=== PATIENT | female | born 1950 | race Caucasian/White ===

== ENCOUNTER 2016-11-03 15:15 | Emergency (ER) | payer OTHER ==
[2016-11-03 15:30] VITALS: RESP 16
--- NOTE | 2016-11-03 15:54 | EDPHY ---
H & P Stated Complaint: Right Leg Pain Time Seen by Provider: 11/03/16 15:34 HPI/ROS: Chief complaint: Right leg swelling and rash HPI: 66-year-old female with a history of chronic lymphedema of her right leg secondary to lymph node resection from endometrial cancer. Patient states that she has noticed that her right leg is swollen little bit more than normal today and she developed a rash in her right calf which is now in her right groin. It is not painful. It is not itchy. Has not had any fevers or chills. No recent changes in her activity. No abdominal pain. No numbness or weakness. Was sent in for evaluation for possible DVT. ROS: 10 point Review of Systems is negative except as noted in the HPI. Physical exam: Gen: Awake, Alert, No Distress HEENT: Nose: no rhinorrhea Eyes: PERRLA, EOMI Mouth: Moist mucosa Neck: Supple, no JVD Chest: nontender, lungs clear to auscultation Heart: S1, S2 normal, no murmur Abd: Soft, non-tender, no guarding Back: no CVA tenderness, no midline tenderness Ext: Right leg hair is 3+ edema in her calf and thigh which is nonpitting, there is a patchy papular rash on her right leg with some areas on her right inner thigh as well. These are not confluent. There are 3 or 4 PK in her right leg, otherwise this is blanching. Is mildly warm to touch. Skin: Per right leg exam Neuro: CN II-XII intact, Sensation grossly intact, Strength 5/5 in bilateral upper and lower] extremities - Personal History Current Tetanus/Diphtheria Vaccine: No Current Tetanus Diphtheria and Acellular Pertussis (TDAP): No Tetanus Vaccine Date: "WITHIN THE PAST 10 YEARS" - Medical/Surgical History Hx Asthma: No Hx Chronic Respiratory Disease: No Hx Diabetes: No Hx Cardiac Disease: No Hx Renal Disease: No Hx Cirrhosis: No Hx Alcoholism: No Hx HIV/AIDS: No Hx Splenectomy or Spleen Trauma: No Other PMH: SDH AFTER FALL 2007, LYMPHEDEMA RLE, EMDOMETRIAL CA, HYSTERECTOMY, DEPRESSION, migraine headaches - Social History Smoking Status: Never smoked Constitutional: Initial Vital Signs Temperature (C) 36.7 C 11/03/16 15:24 Heart Rate 119 H 11/03/16 15:24 Respiratory Rate 16 11/03/16 15:24 Blood Pressure 158/86 H 11/03/16 15:24 O2 Sat (%) 94 11/03/16 15:24 O2 Delivery Mode Room Air Allergies/Adverse Reactions: No Known Allergies Allergy (Verified 12/16/13 15:41) Home Medications: Medication Instructions Recorded Clonazepam 2 mg PO TID PRN 10/13/14 Doxepin HCl [Sinequan 50 MG (*)] 50 mg PO HS 10/13/14 Hydrocodon-Acetaminophen 5-325 05/31/15 Latanoprost 0.005% 05/31/15 Latanoprost 0.005% [Xalatan 0.005% 1 drops EACHEYE DAILY #1 opht.btl 05/31/15 (*)] Cephalexin [Keflex (*)] 500 mg PO Q6H #28 cap 11/03/16 Sulfamethox/Tmp 800/160 mg 1 tab PO BID #14 tab 11/03/16 [Bactrim Ds] Medical Decision Making - Diagnostics Imaging: Right leg duplex ultrasound: Negative for DVT per Dr. Pierson ED Course/Re-evaluation: 66-year-old patient presenting with right leg swelling and rash. Ultrasound is negative. I suspected to changes are likely secondary to: Chronic lymphedema but the could also be a lymphangitis or cellulitis component as well. She does warm to the touch and erythematous. Is not confluent however. Given its appearance will start her on oral antibiotics and instructions to follow up with primary care tomorrow for re-evaluation. She will return sooner if he continues to spread with any concerns including fevers chills, lightheadedness, or any other changes. Departure - Departure Disposition: Home, Routine, Self-Care Clinical Impression: Lymphangitis, Cellulitis Condition: Good Instructions: Lymphangitis (ED), Cellulitis (ED) Prescriptions: Cephalexin [Keflex (*)] 500 mg PO Q6H #28 cap Sulfamethox/Tmp 800/160 mg [Bactrim Ds] 1 tab PO BID #14 tab
[2016-11-03] MEDS ORDERED: SULFAMET/TMP DS PREPACK#2 BTL TAKEHOME ONE (17:12)
[2016-11-03] MEDS ORDERED: CEPHALEXIN 500MG PREPACK#4 BTL TAKEHOME ONE (17:12)
[2016-11-03 17:33] VITALS: BP 148/84; PULSE 102; TEMP 98.2; O2SAT 93
[2016-11-03] MEDS ORDERED: ONDANSETRON DISINTEGRATING 4 MG TAB ONE (17:34)
[2016-11-03] MEDS ORDERED: ONDANSETRON 4 MG/2 ML VIAL IVP ONE (17:35)
== END 2016-11-03 17:53 | disposition home or self-care (01) ==
DX: L03.115 Cellulitis of right lower limb (principal); Z85.42 Personal history of malignant neoplasm of other parts of uterus

== ENCOUNTER 2017-07-22 11:05 | Emergency (ER) | payer OTHER ==
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
[2017-07-22 11:19] VITALS: BP 147/89; PULSE 99; RESP 18; TEMP 99.1; O2SAT 93
--- NOTE | 2017-07-22 11:26 | CPEKG ---
Heart Rate: 96 RR Interval: 625 P-R Interval: 200 QRSD Interval: 82 QT Interval: 344 QTC Interval: 435 P [place]: 65 QRS [place]: 53 T Wave [place]: 44 EKG Severity - NORMAL ECG - EKG Impression: SINUS RHYTHM Electronically Signed By: Kunal Islas 23-Jul-2017 21:55:13
[2017-07-22 11:32] LABS: % IMMATURE GRANULYOCYTES 0.2 % (0.0-1.1); ABSOLUTE IMMATURE GRANULOCYTES 0.01 10^3/uL (0.00-0.10); ADD DIFF? NO; ADD MORPH? NO; ADD SCAN? NO; ATYPICAL LYMPHOCYTE FLAG 0 (0-99); FRAGMENT RBC FLAG 0 (0-99); HEMATOCRIT 42.3 % (38.0-47.0); HEMOGLOBIN 14.3 g/dL (12.6-16.3); LEFT SHIFT FLG 0 (0-99); LIPEMIA HEMOLYSIS FLAG 90 (0-99); MEAN CELL HEMOGLOBIN 29.1 pg (27.9-34.1); MEAN CELL HEMOGLOBIN CONCENTR. 33.8 g/dL (32.4-36.7); MEAN CELL VOLUME 86.2 fL (81.5-99.8); MEAN PLATELET VOLUME 8.9 fL (8.7-11.7); PLATELET CLUMPS FLAG 0 (0-99); PLATELET COUNT 310 10^3/uL (150-400); RED BLOOD CELL COUNT 4.91 10^6/uL (4.18-5.33); RED CELL DISTRIBUTION WIDTH 12.8 % (11.5-15.2)
[2017-07-22 11:51] LABS: ANION GAP 9 mEq/L (8-16); CALCIUM 9.6 mg/dL (8.5-10.4); CARBON DIOXIDE 28 mEq/l (22-31); CHLORIDE 103 mEq/L (97-110); CREATININE 0.9 mg/dL (0.6-1.0); GLOMERULAR FILTRATION RATE > 60; GLUCOSE 103 mg/dL (70-100); POTASSIUM 4.5 mEq/L (3.5-5.2); SODIUM 140 mEq/L (134-144)
== END 2017-07-22 13:36 | disposition home or self-care (01) ==
LOC: EDUNIT#
DX: S29.9XXA Unspecified injury of thorax, initial encounter (principal); V49.40XA Driver injured in collision with unspecified motor vehicles in traffic accident, initial encounter; Y92.410 Unspecified street and highway as the place of occurrence of the external cause; Y99.8 Other external cause status; Y93.89 Activity, other specified

== ENCOUNTER → 2017-07-29 | Outpatient (CLI) | payer OTHER | LOC: FIMAGING 15:15 | PROVIDERS: ATTEND Internal Medicine Hematology & Oncology | DX: Z12.31 Encounter for screening mammogram for malignant neoplasm of breast (principal) | CPT/HCPCS: G0202 ==

== ENCOUNTER 2017-09-20 13:38 | Day surgery (SDC) | payer OTHER ==
[2017-09-20] MEDS ORDERED: LIDOCAINE 1% 2 ML INJ ID PRN (13:58)
[2017-09-20] MEDS ORDERED: LR 1,000 ML IV ONE (13:58)
[2017-09-20 14:58] VITALS: PULSE 101
--- NOTE | 2017-09-20 15:45 | PDANEPAE ---
ANE History of Present Illness rectal bleeding ANE Past Medical History - Pulmonary History Hx Oxygen in Use at Home: No Hx Sleep Apnea: No - Endocrine History Hx Diabetes: No - Chronic Pain History Chronic Pain: Yes ANE Review of Systems Review of Systems: ANE Patient History - Allergies Allergies/Adverse Reactions: No Known Allergies Allergy (Verified 07/22/17 11:15) - Home Medications Home Medications: Clonazepam 2 mg PO TID PRN 10/13/14 [Last Taken 2 Days Ago ~09/18/17] Doxepin HCl [Sinequan 50 MG (*)] 50 mg PO HS 10/13/14 [Last Taken 1 Day Ago ~04/29] Alendronate Sodium [Fosamax 70 MG (*)] 09/20/17 [Last Taken 09/14/17] SUMAtriptan [Imitrex 50 MG (*)] 09/20/17 [Last Taken Unknown] - NPO status NPO Status: no food or drink >8 hours NPO Since - Liquids (Date): 09/20/17 NPO Since - Liquids (Time): 08:00 NPO Since - Solids (Date): 09/19/17 NPO Since - Solids (Time): 17:00 - Smoking Hx Smoking Status: Never smoked ANE Labs/Vital Signs - Vital Signs Blood Pressure: 131/67 Heart Rate: 101 Respiratory Rate: 18 O2 Sat (%): 93 Height: 154.94 cm Weight: 57.153 kg ANE Physical Exam - Airway Neck exam: FROM Mallampati Score: Class 2 Mouth exam: normal dental/mouth exam - Pulmonary Pulmonary: no respiratory distress - Cardiovascular Cardiovascular: regular rate and rhythym - ASA Status ASA Status: II ANE Anesthesia Plan Total IV Anesthesia: Yes
[2017-09-20] MEDS ORDERED: PROPOFOL/EMULSION 500 MG/50 ML BOTTLE IV ONE (15:49)
--- NOTE | 2017-09-20 15:56 | PDHPUP ---
History & Physical Update H&P update statement: This history and physical update is based on an assessment of the patient which was completed after admission or registration (within 24 hours), but prior to the surgery/procedure.
--- NOTE | 2017-09-20 16:47 | GIREPORT ---
Formerly [facility] Surgical Services - Endoscopy Department Patient Name: Shea Erickson Procedure Date: 09/20/2017 3:55 PM Patient Type: Outpatient Attending MD/ ER Physician: Roberto Bryant Procedure: Colonoscopy Indications: Heme positive stool Providers: Will Charles MD Referring MD: Kendrick Laureano MD, Piter Angelo MD Medicines: Sedation Required Anesthesia Staff Assistance, IV general Complications: No immediate complications. Estimated blood loss: Minimal. Description of Procedure: After obtaining informed consent, the scope was passed under direct vis ion. Throughout the procedure, the patient's blood pressure, pulse, and oxyg en saturations were monitored continuously. The Colonoscope with irrigatio n channel was introduced through the anus and advanced to the cecum, identified by the appendiceal orifice, IC valve and transillumination. The colonoscopy was performed without difficulty. The patient tolerated the procedure well. The quality of the bowel preparation was good. Findings: The digital rectal exam was normal. Two sessile polyps were found in the proximal ascending colon. The poly ps were 2 to 3 mm in size. These polyps were removed with a piecemeal tech nique using a cold biopsy forceps. Resection and retrieval were complete. Estimated blood loss was minimal. The exam was otherwise without abnormality. Estimated Blood Loss: Estimated blood loss was minimal. Post Op Diagnosis: - Two 2 to 3 mm polyps in the proximal ascending colon, removed pieceme al using a cold biopsy forceps. Resected and retrieved. - The examination was otherwise normal. Recommendation: - Await pathology results. - My office will call with the pathology result with 5-7 days. If you h ave not heard from my office by 12-14, do not assume the pathology is hussein l, please call [phone] to get the pathology reults. - If the pathology report reveals adenomatous tissue, then repeat the colonoscopy for surveillance in 5 years. - If the pathology report reveals no adenomatous tissue, then repeat th e colonoscopy for screening purposes in 10 years. - Resume previous diet. - Patient has a contact number available for emergencies. The signs and symptoms of potential delayed complications were discussed with the pat ient. Return to normal activities tomorrow. Written discharge instructions we re provided to the patient. - Continue present medications. - Discharge patient to home (ambulatory). - Return to primary care physician as previously scheduled. - Thank you for allowing me to help in your patient's care. Do not hesi he to call with any questions. Attending Participation: I personally performed the entire procedure. Araceli Solis M.D Will Charles MD 09/20/2017 4:46:41 PM This report has been signed electronicallyMathew MD Araceli Number of Addenda: 0 Note Initiated On: 09/20/2017 3:55 PM Total Procedure Duration Time 0 hours 22 minutes 14 seconds [email or web address]
--- NOTE | 2017-09-20 16:52 | POSTOPPROG ---
Post Op Note Date of Operation: 09/20/17 Surgeon: Thad Charles Anesthesiologist: Deborah Anesthesia: Other (Specify) (OIV general) Pre-op Diagnosis: heme positive Post-op Diagnosis: two small prox ac polyps removed with cold bx Indication: heme positive Procedure: colon wiht bx Findings: 2 and 3 mm prox ascendning colon polyps Inf/Abcess present in the surg proc area at time of surgery?: No EBL: Minimal (few ml from bx) Total fluids administered: 300ml LR Complications: none immediate
--- NOTE | 2017-09-20 16:53 | POSTANESTH ---
Post Anesthetic Evaluation Cardiovascular Status: Normal, Stable Respiratory Status: Normal, Stable Level of Consciousness/Mental Status: Can Participate in Eval Pain Control: Adequate, Prn Tx Ordered Nausea/Vomiting Control: Adequate, Prn Tx Ordered Complications Possibly Related to Anesthesia: None Noted
[2017-09-20 17:03] VITALS: O2SAT 97
[2017-09-20 17:20] VITALS: TEMP 98.2
[2017-09-20 17:50] VITALS: RESP 16
[2017-09-20 17:58] VITALS: BP 146/81
== END 2017-09-20 17:26 | disposition home or self-care (01) ==
LOC: FSGY 13:38
PROVIDERS: ATTEND Internal Medicine Gastroenterology
PROC: 0DBK8ZZ Excision of Ascending Colon, Via Natural or Artificial Opening Endoscopic (ICD-10-PCS; principal; 2017-09-20 15:45)
DX: D12.2 Benign neoplasm of ascending colon (principal); R19.5 Other fecal abnormalities
CPT/HCPCS: J2704

== ENCOUNTER → 2017-09-21 | Outpatient (CLI) | payer OTHER | LOC: FIMAGING 15:07 | PROVIDERS: ATTEND Internal Medicine Hematology & Oncology | DX: N93.9 Abnormal uterine and vaginal bleeding, unspecified (principal); Z85.42 Personal history of malignant neoplasm of other parts of uterus ==

== ENCOUNTER 2017-10-17 12:20 | Emergency (ER) | payer OTHER ==
[2017-10-17] MEDS ORDERED: TDAP ADULT 0.5 ML INJ (BOOSTRIX) IM ONE (13:34)
[2017-10-17] MEDS ORDERED: BACITRACIN OINTMENT 1 PACKET TP ONE (16:00)
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
[2017-10-17 16:25] VITALS: BP 147/63; RESP 20; O2SAT 94
[2017-10-17 16:27] VITALS: PULSE 90; TEMP 98.1
== END 2017-10-17 16:25 | disposition home or self-care (01) ==
DX: S01.112A Laceration without foreign body of left eyelid and periocular area, initial encounter (principal); Z23 Encounter for immunization; Z85.42 Personal history of malignant neoplasm of other parts of uterus; W22.03XA Walked into furniture, initial encounter

== ENCOUNTER → 2018-04-10 | Outpatient (CLI) | payer OTHER | LOC: FIMAGING 08:20 | PROVIDERS: ATTEND Family Medicine | DX: Z13.820 Encounter for screening for osteoporosis (principal); M81.0 Age-related osteoporosis without current pathological fracture; Z78.0 Asymptomatic menopausal state ==

== ENCOUNTER → 2018-04-28 | Outpatient (CLI) | payer OTHER | LOC: FIMAGING 13:18 | PROVIDERS: ATTEND Family Medicine | DX: M79.645 Pain in left finger(s) (principal) ==

== ENCOUNTER → 2018-06-25 | Outpatient (CLI) | payer OTHER ==
[~2018-06-25] MED LIST: GADOBUTROL 10 ML VIAL IVP ONE
== END ==
LOC: FIMAGING 10:39
PROVIDERS: ATTEND Physician Assistant Medical
DX: C80.1 Malignant (primary) neoplasm, unspecified (principal); H02.401 Unspecified ptosis of right eyelid; G93.89 Other specified disorders of brain
CPT/HCPCS: 70553; A9585

== ENCOUNTER → 2018-08-22 | Outpatient (CLI) | payer OTHER | LOC: FIMAGING 08:26 | PROVIDERS: ATTEND Internal Medicine Hematology & Oncology | DX: R92.8 Other abnormal and inconclusive findings on diagnostic imaging of breast (principal) ==

== ENCOUNTER → 2018-10-03 | Outpatient (CLI) | payer OTHER | LOC: FIMAGING 09:44 | PROVIDERS: ATTEND Internal Medicine Hematology & Oncology | DX: M79.661 Pain in right lower leg (principal); R60.0 Localized edema; C54.1 Malignant neoplasm of endometrium ==

== ENCOUNTER 2018-10-09 01:38 | Emergency (ER) | payer OTHER ==
[2018-10-09] MEDS ORDERED: HYDROCODONE/APAP 5/325 TAB PO ONE (02:25)
[2018-10-09] MEDS ORDERED: IBUPROFEN 600 MG TAB PO ONE (02:25)
--- NOTE | 2018-10-09 02:45 | EDPHY ---
H & P Stated Complaint: right leg pain/ pain medication PCP gave pt isn't working Time Seen by Provider: 10/09/18 02:07 HPI/ROS: HPI The patient presents with progressive right leg pain for the last 1 week. Pain started gradually and has gotten progressively worse. It is throughout her entire right leg. Since 2002 when she was diagnosed with endometrial cancer she has had lymphedema of this leg. She reports that the swelling has not changed recently. Her pain radiates throughout her leg and is worse when she walks. She said it was very difficult for her to make her way into the emergency department as she does not have a cane or a walker. She saw Dr. Laureano 2 days ago in the clinic. She had a DVT ultrasound performed which I was able to review and is negative. Dr. Laureano gave her some medication for pain, however it did not help. She is supposed to have an MRI in a few days for further evaluation. She has not had any fevers or chills. REVIEW OF SYSTEMS 10 systems were reviewed and negative with the exception of the elements mentioned in the history of present illness. PMHx: Right lower extremity lymphedema, history of endometrial cancer, history of subdural hemorrhage in 2007 Soc Hx: Lives independently PHYSICAL General Appearance: Alert, no distress Eyes: Pupils equal and round no pallor or injection ENT, Mouth: Mucous membranes moist Respiratory: There are no retractions, lungs are clear to auscultation Cardiovascular: Regular rate and rhythm Gastrointestinal: Abdomen is soft and non-tender, no masses, bowel sounds normal Neurological: A&O, moves all extremities Skin: Warm and dry, no rashes Musculoskeletal: Neck is supple non tender Extremities: Lymphedema diffuse in right lower extremity, she has some erythema of her right [place], the leg is warm, slightly tender to palpation diffusely, there is no pitting edema, 2+ DP pulses are present Psychiatric: Patient is oriented X 3, there is no agitation Source: Patient Exam Limitations: No limitations - Personal History Current Tetanus/Diphtheria Vaccine: No Current Tetanus Diphtheria and Acellular Pertussis (TDAP): No Tetanus Vaccine Date: does not receive vaccines for rastafari reasons - Medical/Surgical History Hx Asthma: No Hx Chronic Respiratory Disease: No Hx Diabetes: No Hx Cardiac Disease: No Hx Renal Disease: No Hx Cirrhosis: No Hx Alcoholism: No Hx HIV/AIDS: No Hx Splenectomy or Spleen Trauma: No Other PMH: SDH AFTER FALL 2007, LYMPHEDEMA RLE, EMDOMETRIAL CA, HYSTERECTOMY, DEPRESSION, migraine headaches - Social History Smoking Status: Never smoked Constitutional: Initial Vital Signs Temperature (C) 36.7 C 10/09/18 01:40 Heart Rate 98 10/09/18 01:40 Respiratory Rate 16 10/09/18 01:40 Blood Pressure 140/83 H 10/09/18 01:40 O2 Sat (%) 92 10/09/18 01:40 O2 Delivery Mode Room Air Allergies/Adverse Reactions: No Known Allergies Allergy (Verified 10/09/18 01:44) Home Medications: Medication Instructions Recorded Clonazepam 2 mg PO TID PRN 10/13/14 Doxepin HCl [Sinequan 50 MG (*)] 50 mg PO HS 10/13/14 Latanoprost 0.005% [Xalatan 0.005% 1 drops EACHEYE DAILY #1 opht.btl 05/31/15 (*)] Alendronate Sodium [Fosamax 70 MG 09/20/17 (*)] Cephalexin [Keflex (*)] 500 mg PO Q6H #28 cap 10/09/18 Hydrocodone/APAP 5/325 [Spiro 1 - 2 tab PO Q6H PRN #15 tab 10/09/18 5/325 (*)] Pain Med 10/09/18 Medical Decision Making - Diagnostics Imaging Results: X-ray right knee shows loose body present, interpreted by me, radiology interpretation is pending. Imaging: I viewed and interpreted images myself Differential Diagnosis: 68-year-old female with right-sided leg pain with chronic lymphedema present. Pain is atraumatic, worse over the last 1 week, had a negative DVT study a few days ago. Here, she has some redness of her [place] without any other remarkable physical exam findings. Plan for pain medication, basic labs and plain films. Labs are unremarkable, patient felt significantly better after receiving Spiro and ibuprofen. She was able to walk normally and felt much better. The cause of her pain is really not clear to me. Because of the redness on her [place] I will give her a course of Keflex for possible cellulitis. Because she had a recent negative DVT study, I do not think the after repeat this. X-ray does show some degenerative change of her knee which is a possible consideration for her pain. She will follow up with MRI in a few days as already scheduled by Dr. Laureano and has a follow-up appointment with him next week. - Data Points Laboratory Results: Laboratory Results 10/09/18 02:47 10/09/18 02:47 10/09/18 10/09/18 02:47 02:47 WBC 5.87 10^3/uL 10^3/uL (3.80-9.50) RBC 4.50 10^6/uL 10^6/uL (4.18-5.33) Hgb 12.5 g/dL L g/dL (12.6-16.3) Hct 39.1 % % (38.0-47.0) MCV 86.9 fL fL (81.5-99.8) MCH 27.8 pg L pg (27.9-34.1) MCHC 32.0 g/dL L g/dL (32.4-36.7) RDW 12.9 % % (11.5-15.2) Plt Count 277 10^3/uL 10^3/uL (150-400) MPV 9.1 fL fL (8.7-11.7) Neut % (Auto) 56.0 % % (39.3-74.2) Lymph % (Auto) 26.7 % % (15.0-45.0) [place] % (Auto) 10.1 % % (4.5-13.0) Eos % (Auto) 6.1 % % (0.6-7.6) Baso % (Auto) 0.9 % % (0.3-1.7) Nucleat RBC Rel Count 0.0 % % (0.0-0.2) Absolute Neuts (auto) 3.29 10^3/uL 10^3/uL (1.70-6.50) Absolute Lymphs (auto) 1.57 10^3/uL 10^3/uL (1.00-3.00) Absolute Monos (auto) 0.59 10^3/uL 10^3/uL (0.30-0.80) Absolute Eos (auto) 0.36 10^3/uL 10^3/uL (0.03-0.40) Absolute Basos (auto) 0.05 10^3/uL 10^3/uL (0.02-0.10) Absolute Nucleated RBC 0.00 10^3/uL 10^3/uL (0-0.01) Immature Gran % 0.2 % % (0.0-1.1) Immature Gran # 0.01 10^3/uL 10^3/uL (0.00-0.10) ESR 8 MM/HR MM/HR (0-30) Sodium 140 mEq/L mEq/L (135-145) Potassium 4.0 mEq/L mEq/L (3.5-5.2) Chloride 105 mEq/L mEq/L (97-110) Carbon Dioxide 31 mEq/l mEq/l (22-31) Anion Gap 4 mEq/L L mEq/L (6-14) BUN 20 mg/dL mg/dL (7-23) Creatinine 0.7 mg/dL mg/dL (0.6-1.0) Estimated GFR > 60 Glucose 122 mg/dL H mg/dL (70-100) Calcium 9.3 mg/dL mg/dL (8.5-10.4) C-Reactive Protein < 5.0 mg/L mg/L (<10.0) Medications Given: Discontinued Medications Hydrocodone Bitart/Acetaminophen (Spiro 5/325) 2 tab PO EDNOW ONE Stop: 10/09/18 02:26 Last Admin: 10/09/18 02:35 Dose: 2 tab Ibuprofen (Motrin) 600 mg PO EDNOW ONE Stop: 10/09/18 02:26 Last Admin: 10/09/18 02:36 Dose: 600 mg Departure - Departure Disposition: Home, Routine, Self-Care Clinical Impression: Right leg pain Condition: Good Instructions: Leg Pain (ED) Additional Instructions: The cause of your leg pain is not entirely clear. Your x-ray did show a you have what is called a loose body in your knee joint which can cause some pain and clicking of your knee. There is also a little bit of redness on [place]. This could be a mild infection and because of this I am going to give you a course of antibiotics. Referrals: Kendrick Laureano MD [Primary Care Provider] - As per Instructions Prescriptions: Cephalexin [Keflex (*)] 500 mg PO Q6H #28 cap Hydrocodone/APAP 5/325 [Spiro 5/325 (*)] 1 - 2 tab PO Q6H PRN #15 tab PRN Reason: Pain, Breakthrough
[2018-10-09 02:55] LABS: PLATELET COUNT 277 10^3/uL (150-400)
[2018-10-09 05:09] VITALS: BP 117/68
== END 2018-10-09 05:56 | disposition home or self-care (01) ==
DX: M79.604 Pain in right leg (principal)

== ENCOUNTER 2018-10-11 05:32 | Emergency (ER) | payer OTHER ==
--- NOTE | 2018-10-11 06:57 | EDPHY ---
H & P Time Seen by Provider: 10/11/18 06:56 HPI/ROS: Chief complaint. Right leg swelling and pain HPI. 60-year-old female presents emergency department with right leg pain for 1 week. She has chronic lymphedema in the right lower extremity. Denies injury. 1 week ago she had an ultrasound that was negative for DVT. Hurts to walk. She was seen in our emergency department 2 days ago for leg pain. She had a negative x-ray of her knee. There was some erythema to her [place] and started on cephalexin. She had an MRI yesterday though she is not sure what the MRI was of. She really has no symptoms above her knee. The although she does tell me slight right posterior hip pain. No chest discomfort or shortness of breath. No fever. She was prescribed [place] encouraged to use ibuprofen. Last medication was yesterday. She has a follow-up appointment in 2 days with her oncologist for further evaluation of the knee pain and MRI review with the patient. ROS 10 systems were reviewed and negative with the exception of the elements mentioned in the history of present illness Past Medical/Surgical History: Endometrial cancer, chronic lymphedema right lower extremity, hysterectomy, depression, migraines, subdural Social History: Single, nonsmoker, no alcohol Smoking Status: Never smoked Physical Exam: General Appearance: Alert well-developed female mild distress vital signs significant for heart rate 109 Eyes: Pupils equal and round no pallor or injection. ENT, Mouth: Mucous membranes are moist. Respiratory: There are no retractions, lungs are clear to auscultation. Cardiovascular: Regular rate and rhythm. Gastrointestinal: Abdomen is soft and nontender, no masses, bowel sounds normal. Neurological: Awake and alert, sensory and motor exams grossly normal. Skin: Warm and dry, no rashes. Musculoskeletal: Neck is supple nontender. Extremities swelling of the [place] and calf. Patient thinks that this swelling is about baseline for her. Mild erythema to the anterior aspect of her right [place]. Patient is unsure whether the redness has improved or worsened over the 2 days of antibiotics. Distal motor vascular sensitivity is intact. No discomfort to the thigh. Psychiatric: Patient is oriented X 3, there is no agitation. Constitutional: Initial Vital Signs Temperature (C) 36.7 C 10/11/18 05:37 Heart Rate 109 H 10/11/18 05:37 Respiratory Rate 18 10/11/18 05:37 Blood Pressure 135/76 H 10/11/18 05:37 O2 Sat (%) 96 10/11/18 05:37 O2 Delivery Mode Room Air Allergies/Adverse Reactions: No Known Allergies Allergy (Verified 10/09/18 01:44) Home Medications: Medication Instructions Recorded Clonazepam 2 mg PO TID PRN 10/13/14 Doxepin HCl [Sinequan 50 MG (*)] 50 mg PO HS 10/13/14 Latanoprost 0.005% [Xalatan 0.005% 1 drops EACHEYE DAILY #1 opht.btl 05/31/15 (*)] Alendronate Sodium [Fosamax 70 MG 09/20/17 (*)] Hydrocodone/APAP 5/325 [[place] 1 - 2 tab PO Q6H PRN #15 tab 10/09/18 5/325 (*)] Rivaroxaban [Xarelto 15mg (*)] 15 mg PO BID #40 tab 10/11/18 Medical Decision Making - Diagnostics Imaging Results: Imaging Impressions Extremity Venous Study 10/11/18 07:15 Impression: 1. Focal thrombus suspected involving one of the 2 paired posterior tibial veins in the calf not seen previously. No additional evidence of DVT right lower extremity. Ultrasound reviewed by me and discussed with Dr. Connell shows non compressibility of the posterior tibial vein. Concern for focal thrombus. No other evidence for DVT I reviewed the MRI report from [facility]. The MRI was performed on October 10 and it was an MRI pelvis without and with contrast. Impression is soft tissue swelling with subcutaneous edema about the right hip but otherwise no mass, pathologic add adenopathy or abscess seen. Visualized portions of the iliac and femoral vessels which were normal. No pathologic inguinal or pelvic adenopathy. Uterus and ovaries are not visualized consistent with hysterectomy. Procedures: IV normal saline ED Course/Re-evaluation: Xarelto in the ED Serial evaluations patient remained stable. She and I discussed imaging and lab results. We discussed treatment plan including criteria for return importance of follow-up and further evaluation. She expresses understanding and agreement Differential Diagnosis: Re-evaluation 9:10 a.m.. Patient is stable. Patient and I discussed imaging and lab results. We discussed treatment plan including criteria for return importance of follow-up and further evaluation. She expresses understanding and agreement I considered cellulitis, DVT. She has chronic lymphedema - Data Points Laboratory Results: Laboratory Results 10/11/18 08:25 10/11/18 08:25 10/11/18 10/11/18 08:25 08:25 WBC 4.84 10^3/uL 10^3/uL (3.80-9.50) RBC 4.40 10^6/uL 10^6/uL (4.18-5.33) Hgb 12.0 g/dL L g/dL (12.6-16.3) Hct 37.4 % L % (38.0-47.0) MCV 85.0 fL fL (81.5-99.8) MCH 27.3 pg L pg (27.9-34.1) MCHC 32.1 g/dL L g/dL (32.4-36.7) RDW 12.8 % % (11.5-15.2) Plt Count 237 10^3/uL 10^3/uL (150-400) MPV 9.1 fL fL (8.7-11.7) Neut % (Auto) 58.5 % % (39.3-74.2) Lymph % (Auto) 28.5 % % (15.0-45.0) [place] % (Auto) 9.9 % % (4.5-13.0) Eos % (Auto) 2.5 % % (0.6-7.6) Baso % (Auto) 0.4 % % (0.3-1.7) Nucleat RBC Rel Count 0.0 % % (0.0-0.2) Absolute Neuts (auto) 2.83 10^3/uL 10^3/uL (1.70-6.50) Absolute Lymphs (auto) 1.38 10^3/uL 10^3/uL (1.00-3.00) Absolute Monos (auto) 0.48 10^3/uL 10^3/uL (0.30-0.80) Absolute Eos (auto) 0.12 10^3/uL 10^3/uL (0.03-0.40) Absolute Basos (auto) 0.02 10^3/uL 10^3/uL (0.02-0.10) Absolute Nucleated RBC 0.00 10^3/uL 10^3/uL (0-0.01) Immature Gran % 0.2 % % (0.0-1.1) Immature Gran # 0.01 10^3/uL 10^3/uL (0.00-0.10) Sodium 136 mEq/L mEq/L (135-145) Potassium 4.1 mEq/L mEq/L (3.5-5.2) Chloride 103 mEq/L mEq/L (97-110) Carbon Dioxide 29 mEq/l mEq/l (22-31) Anion Gap 4 mEq/L L mEq/L (6-14) BUN 19 mg/dL mg/dL (7-23) Creatinine 0.7 mg/dL mg/dL (0.6-1.0) Estimated GFR > 60 Glucose 101 mg/dL H mg/dL (70-100) Calcium 8.6 mg/dL mg/dL (8.5-10.4) Medications Given: Discontinued Medications Sodium Chloride (Ns) 1,000 mls @ 0 mls/hr IV EDNOW ONE; Wide Open PRN Reason: Protocol Stop: 10/11/18 07:15 Last Admin: 10/11/18 08:15 Dose: 1,000 mls Ibuprofen (Motrin) 600 mg PO EDNOW ONE Stop: 10/11/18 07:16 Last Admin: 10/11/18 08:27 Dose: 600 mg Departure - Departure Disposition: Home, Routine, Self-Care Clinical Impression: DVT (deep venous thrombosis) Condition: Good Instructions: Deep Vein Thrombosis (ED), Leg Edema (ED) Additional Instructions: Continue the cephalexin as antibiotic. Xarelto twice daily to treat blood clot Tylenol or [place] as needed for discomfort. Do not take ibuprofen while on Xarelto Keep leg elevated as much as possible. Keep your appointment on Tuesday with Dr. Laureano Referrals: Kendrick Laureano MD [Primary Care Provider] - 1-2 days without fail Prescriptions: Rivaroxaban [Xarelto 15mg (*)] 15 mg PO BID #40 tab
[2018-10-11] MEDS ORDERED: NS 1,000 ML IV ONE (07:14)
[2018-10-11] MEDS ORDERED: IBUPROFEN 600 MG TAB PO ONE (07:15)
[2018-10-11 08:37] LABS: PLATELET COUNT 237 10^3/uL (150-400)
[2018-10-11] MEDS ORDERED: RIVAROXABAN 15 MG TAB PO ONE (09:09)
[2018-10-11 09:54] VITALS: BP 108/69
== END 2018-10-11 09:52 | disposition home or self-care (01) ==
DX: I82.4Z1 Acute embolism and thrombosis of unspecified deep veins of right distal lower extremity (principal); E86.9 Volume depletion, unspecified

== ENCOUNTER → 2018-10-17 | Outpatient (CLI) | payer OTHER | LOC: FIMAGING 09:20 | PROVIDERS: ATTEND Nurse Practitioner | DX: R60.0 Localized edema (principal) ==

== ENCOUNTER 2018-10-29 03:21 | Emergency (ER) | payer OTHER ==
--- NOTE | 2018-10-29 03:45 | EDPHY ---
H & P Stated Complaint: possible RIGHT calf DVT, swelling, pain. 4 hydrocodone POSTPARTUM NURSE Time Seen by Provider: 10/29/18 03:45 HPI/ROS: HPI CHIEF COMPLAINT: Right calf pain. Concern for DVT. HISTORY OF PRESENT ILLNESS: This is a very pleasant 68-year-old female she presents to the emergency room with right leg pain. Pain is mainly behind right calf. no upper thigh pain, no popliteal pain, no groin pain, Patient reports severe sharp stabbing calf pain of her right calf. States this started yesterday. She is concerned about a DVT. She states her leg is chronically swollen of the right leg. She has chronic right leg lymphedema. She reports to me that is about the same size that it normally is. She denies any injury. She complains of right posterior calf pain sharp stabbing. She has had a DVT in the past. She denies chest pain or shortness of breath denies pleuritic pain , denies trauma to her leg. Denies fever. Past Medical History: Significant medical history for chronic lymphedema, endometrial cancer, lymphedema of the right lower extremity, subdural hemorrhage , migraine headaches Past Surgical History: Denies recent surgery Social History: Denies drugs alcohol tobacco. Family History: Noncontributory ROS REVIEW OF SYSTEMS: 10 Systems were reviewed and negative with the exception of the elements mentioned in the history of present illness. Exam Constitutional triage nursing summary reviewed, vital signs reviewed, awake/ alert. Eyes normal conjunctivae and sclera, EOMI, PERRLA. HENT normal inspection, atraumatic, moist mucus membranes, no epistaxis, neck supple/ no meningismus, no raccoon eyes. Respiratory clear to auscultation bilaterally, normal breath sounds, no respiratory distress, no wheezing. Cardiovascular rate normal, regular rhythm, no murmur, no edema, distal pulses normal. Gastrointestinal soft, non-tender, no rebound, no guarding, normal bowel sounds, no distension, no pulsatile mass. Genitourinary no CVA tenderness. Musculoskeletal right lower extremity: Good distal pulse, good cap refill, warm extremity, the right lower extremity is edematous, patient reports to me this is the normal size of her leg. It is not larger than normal. She has some mild tenderness to the posterior calf. However compartments are very soft. She has a good DP pulse. No rash no redness. No signs infection. Good femoral pulse, good distal pulse. Good cap refill. no midline vertebral tenderness, full range of motion, no calf swelling, no tenderness of extremities, no meningismus, good pulses, neurovascularly intact. Skin pink, warm, & dry, no rash, skin atraumatic. Neurologic awake, alert and oriented x 3, AAOx3, moves all 4 extremities equally, motor intact, sensory intact, CN II-XII intact, normal cerebellar, normal vision, normal speech. Psychiatric normal mood/affect. Heme/Lymph/Immune no lymphadenopathy. Differential Diagnosis: Includes but is not limited to in a particular order worsening edema, DVT, infection, calf strain, calf spasm Medical Decision Making: Plan for this patient IV establishment basic blood work, IV pain control including fentanyl 50 mcg for pain control, ultrasound right lower extremity rule out DVT. Re-evaluation: Ultrasound of the right lower extremity faxed to me by direct Radiology 4:15 a.m.. No evidence of DVT in the right lower extremity. 0713: Patient re-evaluated this time is resting comfortably. She feels comfortable going home. I do recommend leg elevation. Additionally return precautions discussed with her she understands to return to emergency room if develops worsening leg pain, swelling, not doing well. Her compartments were soft on exam. Distal leg is neurovascularly intact with good distal pulse good cap refill. Warm extremity. No redness. No signs of infection. She has chronic lymphedema right lower extremity this may be the cause of her pain. She reports to me the lymphedema is chronic and is about the same size as it always is of her right leg. She denies any significant swelling. She denies injury. She was able to ambulate well. At 7:30 a.m. She is resting comfortably in feels comfortable going home. We discussed elevation, cool compresses, and return precautions she understands return emergency room if there is worsening leg pain, leg swelling, or not doing well. Source: Patient - Personal History Current Tetanus/Diphtheria Vaccine: No Current Tetanus Diphtheria and Acellular Pertussis (TDAP): No Tetanus Vaccine Date: does not receive vaccines for confucianist reasons - Medical/Surgical History Hx Asthma: No Hx Chronic Respiratory Disease: No Hx Diabetes: No Hx Cardiac Disease: No Hx Renal Disease: No Hx Cirrhosis: No Hx Alcoholism: No Hx HIV/AIDS: No Hx Splenectomy or Spleen Trauma: No Other PMH: SDH AFTER FALL 2007, LYMPHEDEMA RLE, EMDOMETRIAL CA, HYSTERECTOMY, DEPRESSION, migraine headaches - Social History Smoking Status: Never smoked Constitutional: Initial Vital Signs Temperature (C) 36.5 C 10/29/18 03:24 Heart Rate 101 H 10/29/18 03:24 Respiratory Rate 20 10/29/18 03:24 Blood Pressure 136/77 H 10/29/18 03:24 O2 Sat (%) 94 10/29/18 03:24 O2 Delivery Mode Room Air Allergies/Adverse Reactions: No Known Allergies Allergy (Verified 10/29/18 03:22) Home Medications: Medication Instructions Recorded Clonazepam 2 mg PO TID PRN 10/13/14 Doxepin HCl [Sinequan 50 MG (*)] 50 mg PO HS 10/13/14 Latanoprost 0.005% [Xalatan 0.005% 1 drops EACHEYE DAILY #1 opht.btl 05/31/15 (*)] Alendronate Sodium [Fosamax 70 MG 09/20/17 (*)] Hydrocodone/APAP 5/325 [[place] 1 - 2 tab PO Q6H PRN #15 tab 10/09/18 5/325 (*)] Rivaroxaban [Xarelto 15mg (*)] 15 mg PO BID #40 tab 10/11/18 Medical Decision Making - Data Points Laboratory Results: Laboratory Results 10/29/18 03:59 10/29/18 03:59 Medications Given: Discontinued Medications Fentanyl (Sublimaze) 50 mcg IVP EDNOW ONE Stop: 10/29/18 03:57 Last Admin: 10/29/18 04:11 Dose: 50 mcg Hydromorphone HCl (Dilaudid) 0.5 mg IVP EDNOW ONE Stop: 10/29/18 04:58 Last Admin: 10/29/18 04:59 Dose: 0.5 mg Departure - Departure Disposition: Home, Routine, Self-Care Clinical Impression: Leg pain Condition: Good Instructions: Leg Pain (ED) Additional Instructions: 1. Keep your leg elevated. 2. Return to the emergency room if there is worsening leg pain, fever, not doing well. 3. Recommend keeping her leg elevated, cool compresses. 4. I believe your pain is to from the lymphedema. 5. Return if worsening pain Referrals: Kendrick Laureano MD [Primary Care Provider] - As per Instructions
[2018-10-29] MEDS ORDERED: fentaNYL 100 MCG/2 ML INJ IVP ONE (03:56)
[2018-10-29 04:11] LABS: PLATELET COUNT 327 10^3/uL (150-400)
[2018-10-29 04:23] LABS: INR 2.28 (0.83-1.16); PROTIME(PATIENT) 25.1 SEC (12.0-15.0)
[2018-10-29] MEDS ORDERED: HYDROmorphONE/DILAUDID 1 MG/ML INJ ONE (04:53)
[2018-10-29] MEDS ORDERED: HYDROmorphONE/DILAUDID 1 MG/ML INJ IVP ONE (04:57)
[2018-10-29 07:27] VITALS: BP 110/70
== END 2018-10-29 07:39 | disposition home or self-care (01) ==
DX: I89.0 Lymphedema, not elsewhere classified (principal); Z85.42 Personal history of malignant neoplasm of other parts of uterus; Z90.710 Acquired absence of both cervix and uterus
CPT/HCPCS: 93971; 96374; 96375; 99285; J1170; J3010

== ENCOUNTER 2018-11-29 09:58 | Observation (INO) | payer OTHER ==
--- NOTE | 2018-11-29 10:52 | EDPHY ---
H & P Time Seen by Provider: 11/29/18 10:51 HPI/ROS: CHIEF COMPLAINT: Back pain radiating to right leg HISTORY OF PRESENT ILLNESS: Patient says she has his symptoms since this past Homa. They are worsening and she had an MRI done at [facility], the report is available for me to see. Apparently she has mild L4-5 spinal stenosis , a prominent L5-S1 ostomy of 5 8, and grade 1 degenerative anterolisthesis of L4-5 and L5-S1. She presents today from Dr. Laureano office with worsening and severe back pain. She apparently was crawling into the office after having taken an Uber to the office for evaluation. She denies weakness or numbness in the feet or incontinence. Symptoms severe. Slowly worsening over the course of the last 3 weeks. REVIEW OF SYSTEMS: Eye: no change in vision ENT: no sore throat Cardiac: no chest pain or syncope Pulmonary: no cough or SOB Abdomen: no vomiting, diarrhea, abdominal pain Musculoskeletal: HPI, chronic right leg swelling since 2002 Skin: no rash Neuro: no headache Constitutional: no fever : no urinary symptoms A comprehensive 10 point review of systems is otherwise negative aside from elements mentioned in the history of present illness. PAST MEDICAL HISTORY: Endometrial cancer, chronic low right lower extremity lymphedema, hysterectomy, migraine headaches, DVT in the right leg Social history: Lives independently General Appearance: Alert and conversant, cooperative. Eyes: No scleral icterus. ENT, Mouth: Normal mucous membranes. Respiratory: Normal respiratory effort, breath sounds equal, lungs are clear to auscultation. Cardiovascular: Regular rate and rhythm. Gastrointestinal: Abdomen is soft and non tender. Neurological: Alert, face symmetric, normal motor and sensory in extremities. Toes downgoing, patellar reflexes 1+ and symmetric, ankle reflexes 1+ and symmetric, no clonus. Extensor hallucis longus and dorsiflexion and plantar flexion are 5+ bilaterally. Skin: Warm and dry, no rashes. Musculoskeletal: Market right leg swelling and peripheral edema without calf tenderness. Psychiatric: Not agitated. Emergency Department course/MDM: Patient was sent to the emergency department by her oncologist for admission and further inpatient workup. IV pain medication, labs, hospitalist admission. Smoking Status: Never smoked Constitutional: Initial Vital Signs Temperature (C) 36.8 C 11/29/18 09:59 Heart Rate 85 11/29/18 09:59 Respiratory Rate 16 03/20/19 09:59 Blood Pressure 136/72 H 11/29/18 09:59 O2 Sat (%) 92 11/29/18 09:59 O2 Delivery Mode Room Air Allergies/Adverse Reactions: No Known Allergies Allergy (Verified 10/29/18 03:22) Home Medications: Medication Instructions Recorded Clonazepam 2 mg PO TID PRN 10/13/14 Doxepin HCl [Sinequan 50 MG (*)] 300 mg PO HS 10/13/14 Alendronate Sodium [Fosamax 70 MG 70 mg PO WE 09/20/17 (*)] HYDROcodone/APAP 10325 [[place] 1 tab PO Q4HRS PRN 11/29/18 10325 (*)] Herbals/Supplements -Info Only 1 ea PO DAILY 11/29/18 Ibuprofen [Motrin (*)] 200 mg PO DAILY PRN 11/29/18 Latanoprost 0.005% [Xalatan 0.005% 1 drops EACHEYE HS 11/29/18 (*)] Naratriptan HCl [Amerge] 1 mg PO DAILY PRN 11/29/18 Ondansetron Odt [Zofran Odt 4 mg 4 mg PO Q4 PRN 11/29/18 (*)] Rivaroxaban [Xarelto 10mg (*)] 20 mg PO DAILY 11/29/18 Timolol 0.5% [TIMOPTIC 0.5% (*)] 1 drops EACHEYE DAILY 11/29/18 cycloSPORINE 0.05% [Restasis Opht 1 drop EACHEYE BID 11/29/18 Drops(*)] Medical Decision Making Differential Diagnosis: Differential considered including but not limited to spine fracture, cauda equina, lumbar radiculopathy, muscle spasm. Consult/Admit Bed Type: [place] [address] - Data Points Medications Given: Discontinued Medications Hydromorphone HCl (Dilaudid) 0.5 mg IVP EDNOW ONE Stop: 11/29/18 11:20 Last Admin: 11/29/18 11:51 Dose: 0.5 mg Hydromorphone HCl (Dilaudid) 0.5 mg IVP EDNOW ONE Stop: 11/29/18 13:01 Last Admin: 03/20/19 13:53 Dose: 0.5 mg Ondansetron HCl (Zofran) 4 mg IVP EDNOW ONE Stop: 11/29/18 11:20 Last Admin: 11/29/18 11:51 Dose: 4 mg Departure - Departure Disposition: [facility] Inpatient Acute Clinical Impression: Back pain Qualifiers: Back pain location: low back pain Chronicity: chronic Back pain laterality: right Sciatica presence: with sciatica Sciatica laterality: sciatica of right side Qualified Code(s): M54.41 - Lumbago with sciatica, right side; G89.29 - Other chronic pain; G89.29 - Other chronic pain Condition: Good
[2018-11-29] MEDS ORDERED: ONDANSETRON 4 MG/2 ML VIAL IVP ONE (11:19)
[2018-11-29] MEDS ORDERED: HYDROmorphONE/DILAUDID 2 MG/ML INJ IVP ONE (11:19)
[2018-11-29 12:07] LABS: PLATELET COUNT 280 10^3/uL (150-400)
[2018-11-29] MEDS: HYDROmorphONE/DILAUDID 2 MG/ML INJ IVP ONE ×2 (13:06→13:53)
[2018-11-29] MEDS ORDERED: ONDANSETRON DISINTEGRATING 4 MG TAB PO PRN ×2 (15:55→15:57)
[2018-11-29] MEDS ORDERED: NARATRIPTAN HCL 1 MG PO PRN (15:55)
[2018-11-29] MEDS ORDERED: ONDANSETRON 4 MG/2 ML VIAL IVP PRN (15:57)
[2018-11-29] MEDS ORDERED: ACETAMINOPHEN 325 MG TAB PO PRN (15:57)
[2018-11-29] MEDS ORDERED: KETOROLAC 30 MG/1 ML SDV IVP ONE (15:59)
--- NOTE | 2018-11-29 16:26 | GHP ---
[f rep st] HISTORY AND PHYSICAL DATE OF ADMISSION: 11/29/2018 Ms Erickson is a 68-year-old female with history of metastatic endometrial cancer, recent DVT, and low back pain, who saw Dr. Kendrick Zazueta in followup today and she was basically in crawling into the offi ce. She was referred to the ER for further evaluation. She says it is progressive leg pain where he r leg occasionally gives out. She describes the pain in her right upper leg and her thigh. She does not use injection drugs. She has not had fever or chills. She had an MRI performed on the his month that showed L1 and L2 were relatively unremarkable without spinal foraminal stenosis, but a t L4-L5 she has mild spinal stenosis, but at S1 she has compression of the right nerve root by what s ounds like an osteophyte. She has not had bowel or bladder incontinence. REVIEW OF SYSTEMS: Complete 10-point review of systems conducted negative except as noted in the HPI . PAST MEDICAL HISTORY: 1. Metastatic endometrial cancer. She had a hysterectomy in 2002. She refused chemo. She had a rima ng resection. Further details are a little bit unclear, but it sounds she has done really well since then. She had DVT about a month ago. She has history of migraines, glaucoma. ALLERGIES: No known drug allergies. MEDICATIONS: 1. Alendronate. 2. Ibuprofen. 3. Rivaroxaban. 4. Clonazepam. 5. Cyclosporin eye drops. 6. Doxepin. 7. Brick 10/325. 8. Latanoprost. 9. Naratriptan. 10. Ondansetron. 11. Timolol. 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 She is a nonsmoker, rare drinker. FAMILY HISTORY: Reviewed and unremarkable. PHYSICAL EXAMINATION: PRESENTING VITALS: Temp 36.8, blood pressure 136/72, pulse 85, breathing 16 t imes a minute, 93% on room air. GENERAL: No acute distress. HEENT: Sclerae anicteric. Oropharynx clear. Mucous membranes moist. NECK: Supple without lymphadenopathy or JVD. LUNGS: Clear to aus cultation bilaterally. HEART: S1, S2. ABDOMEN: Soft, nontender, nondistended. LOWER EXTREMITIES: No edema. Calves nontender. SKIN: Without rash. NEUROLOGIC: Shows weakness in flexion with the right side, but is otherwise unremarkable. Sensation is intact. LABORATORY STUDIES: White count 4, hematocrit 38, platelets are 280,000. Chem-7 is normal. I have discussed the case Dr. Shahriar Baird. I have reviewed the MRI report from [facility]. The paper repo rt is in her chart. ASSESSMENT/PLAN: A 68-year-old female with leg weakness, presumably secondary to spine disease. 1. Leg weakness. Typically, somebody with hip flexor weakness would have an L2-L3 lesion, which she does not have. Typically, S1 ankle symptoms which works just fine. That said, she is undeniably we ak and I will have Neurosurgery see her. It may be worth repeating the MRI, even though this was don e just 2 weeks ago for prior history of cancer as noted. We will put her on some prednisone, 1 dose of Toradol, and p.r.n. pain medicines. 2. History of metastatic endometrial cancer. Will follow. She sees Oncology regularly. 3. History of recent deep venous thrombosis. For now, I will hold her Xarelto, in that Neurosurgery is going to see her. Prophylaxis pending she is either to be back on Xarelto or use low-molecular h eparin prophylaxis or she will go to Neurosurgery. This to be decided in next day or so. DISPOSITION: Inpatient status. /[id number]/MODL
[2018-11-29] MEDS: predniSONE 20 MG TAB PO SCH (17:21)
--- NOTE | 2018-11-29 17:56 | GCON ---
[f rep st] CONSULTATION DATE OF CONSULTATION: 11/29/2018 Neurosurgical Consultation CHIEF COMPLAINT: Right leg pain. Ms Erickson is a pleasant 68-year-old female with history of metastatic endometrial cancer, who has undergone multiple surgeries for this issue. She also has a history of right lower extremity lymphedema and a right lower extremity DVT. The patient was seen earlier today in Dr. Laureano's office and was found to have severe leg pain and was sent to the emergency department for further evaluation. The patient states that she has had leg pain since Homa. She is not reporting any low back pain. Her leg pain radiates into her right buttock and posterior thigh and into all the toes of her right foot. She states she does have pain in her right foot. She has noted that her right leg has "buckled" on her. She denies any bowel or bladder incontinence. Her symptoms are worse on standing and better when she is lying flat. ALLERGIES: No known drug allergies. PAST MEDICAL HISTORY: 1. Metastatic endometrial cancer with hysterectomy in 2002 and multiple surgeries for this issue, including lung resection. 2. Right lower extremity DVT, currently on Xarelto. 3. Migraines. 4. Glaucoma. 5. Subdural hematoma in the past, status post surgical decompression. 6. Right lower extremity lymphedema. CURRENT MEDICATIONS: 1. Alendronate. 2. Ibuprofen. 3. Rivaroxaban. 4. Clonazepam. 5. Cyclosporine eye drops. 6. Doxepin. 7. [place] 10/325. 8. Latanoprost. 9. Naratriptan. 10. Ondansetron. 11. Timolol. SOCIAL HISTORY: The patient does not smoke. She rarely drinks alcohol. She is retired. FAMILY HISTORY: Noncontributory. REVIEW OF SYSTEMS: Negative other than mentioned in the HPI. LAB RESULTS: White blood cell count 3.95, hemoglobin 12.0, hematocrit 37.9, and platelets are 280,000. Chemistry: Sodium of 137, potassium 4.3, chloride 100 , carbon dioxide 29, BUN 22, and creatinine 0.8. DATA REVIEW: MRI of the lumbar spine from [facility] was reviewed. This is dated 11/16/2018 and shows lumbar degenerative disease at L4-5 and L5-S1. At L4- 5, there is moderate to severe bilateral facet arthrosis with a small left- sided synovial cyst at the L4-5 facet joint measuring approximately 5 mm in dimension. There is no significant foraminal stenosis. At L5-S1, there is moderate to severe bilateral facet arthrosis with a right-sided facet joint effusion and a small rim enhancing structure measuring 7.5 x 4 x 7 mm extending along the anterior margin of the left L5-S1 facet joint. Right-sided facet arthrosis and osteophyte formation are noted contributing to a right S1, which contacts the right S1 descending nerve root. PHYSICAL EXAM: GENERAL: A pleasant 68-year-old female in no apparent distress when lying flat. HEAD, EYES, EARS, NOSE, AND THROAT: Within normal limits. EXTREMITIES: Within normal limits, with the exception of right lower extremity lymphedema. She has her right lower leg below the knee wrapped up for the lymphedema. NEUROLOGIC EXAM: The patient is awake, alert, and oriented x4. Cranial nerves 2 through 12 are intact to gross examination. Speech is fluent. Tongue is midline. Spinal accessory muscles are intact. She has equal and symmetric strength of the bilateral upper extremities in all muscle groups and all muscle groups of the bilateral lower extremities. The patient has excellent range of motion with hip flexor, extensor, quadriceps, and hamstrings; and has 5/5 strength in bilateral plantar flexors, EHL, and dorsiflexors. She has 1+/4 bilateral reflexes in the biceps and brachioradialis and 1+/4 bilateral patellar tendon reflexes. There is no Bean and no clonus. IMPRESSION: This is a 68-year-old female, who has had leg pain since Homa with acute exacerbation earlier today that is likely related to her right-sided L5-S1 facet arthropathy and medial facet osteophyte formation that contacts the right descending S1 nerve root. The patient's symptoms are consistent with an S1 radiculopathy. She is currently on an oral Medrol Dosepak, which I feel is appropriate at this time. We would recommend that the patient work with Physical Therapy and Occupational Therapy when her pain is well controlled. If she does not improve with Medrol Dosepak, we could consider a right S1 transforaminal epidural steroid injection. Otherwise, if her pain is controlled , she could be seen in our outpatient clinic for further treatment recommendations. This information was discussed with Dr. Cirilo Haynes, who saw and examined the patient today as well. We will continue to follow along with her during her hospitalization. Patient appears to have facet arthropathy on the left at L45 and right at L5S1 causing a right S1 radiculopathy. We hope she responds to some conservative treatments including oral steroids or even a right S1 SHAWN. This could be done here by our radiologists. If the pain is uncontrollable with these measures we remain available to consider a minimally invasive right L5S1 decompressive surgery as needed. /[id number]/MODL and [id number]/MODL [facility]
[2018-11-29] MEDS: clonazePAM 1 MG TAB PO PRN (20:19)
[2018-11-29] MEDS: HYDROCODONE/APAP 10/325 TAB PO PRN (20:19)
[2018-11-29] MEDS: DOXEPIN HCL 50 MG CAP PO SCH (20:20)
[2018-11-29] MEDS: LATANOPROST 0.005% 2.5 ML OPHT DROPS EACHEYE SCH (20:56)
[2018-11-29] MEDS: cycloSPORINE 0.05% 30 DROPERETTE/BOX EACHEYE SCH (21:06)
--- NOTE | 2018-11-30 08:22 | NEUSURGPN ---
Assessment/Plan: Assessment: 68 yr old F with right leg pain, nerve compression on the right S1 Plan: -Continue to hold Xarelto -Patient with continued right leg pain. Will order a right S1 injection for tomorrow am. NPO at midnight -PT/OT as able -Will continue to follow and assess response to injection. Patient requesting surgery this hospitalization. -Discussed patient with Dr Haynes Please call with questions/concerns Subjective: Right leg pain Objective: Alert, oriented to self, confusion with situation and plan PERRLA MAEx4 5/5 BLE Sensation intact to light touch BLE Neuro Check Frequency: per routine Urinary Catheter in Place: No - Physician Discussed Patient with : [facility] Physical Exam - Vitals, I&O, Labs I and O 11/29/18 11/30/18 12/01/18 05:59 05:59 05:59 Intake Total 900 Output Total 1100 Balance -200 Weight 57.9 kg Intake: Oral (ml) 900 Output: Urine (ml) 1100 Toilet 1100 Other: Intake Quantity Yes Sufficient Number of Voids Toilet 1 Vital Signs Temp Pulse Resp BP Pulse Ox 36.4 C 105 H 16 104/70 98 11/30/18 04:00 11/30/18 04:00 11/30/18 04:00 11/30/18 05:48 11/30/18 04:00 Laboratory Results 11/29/18 11:53 11/29/18 11:53 ICD10 Worksheet Patient Problems: Problems Problem Status Onset Back pain Acute Acute encephalopathy Acute
[2018-11-30] MEDS ORDERED: Herbals/Supplements -Info Only PO SCH (09:00)
[2018-11-30] MEDS: HYDROCODONE/APAP 10/325 TAB PO PRN (09:40)
[2018-11-30] MEDS: predniSONE 20 MG TAB PO SCH (09:40)
[2018-11-30] MEDS: TIMOLOL 0.5% 15 ML OPHT.BTL EACHEYE SCH (09:41)
[2018-11-30] MEDS: cycloSPORINE 0.05% 30 DROPERETTE/BOX EACHEYE SCH ×2 (09:42→20:20)
--- NOTE | 2018-11-30 10:48 | PDMN ---
Medical Necessity Medical necessity: MCG M63 back pain A-2 days: 68 y o F with PMHx: met. endometrial Ca, lung resection, migraines, glaucoma, recent DVT Low back pain, presents with severe leg pain, leg weakness, radiates into R buttock and posterior thigh, and all toes on her R foot. - sent from Onc. office- Neuro consult: symptoms consistent with S1 radiculopathy. PT/OT needed, poss S1 epidural steroid injection- anticipate > 2 MN ongoing med nec care- further monitoring, eval and tx.
--- NOTE | 2018-11-30 13:35 | PDCONSULT ---
Aircrewman Note: Hematology/oncology consultation note Requesting provider Dr. Artur Ley Outpatient oncologist: Dr. Kendrick Laureano Reason for consultation: History of endometrial cancer. History of present illness: Shea is a 68-year-old female who is well-known to our practice who was admitted for lower back pain and weakness. She is followed by my partner closely Dr. Kendrick Laureano. She has a remote history of endometrial cancer back in 2002. She underwent a hysterectomy and was noted to have metastasis to the pleura. She had remained without evidence of disease. She saw my colleague yesterday in clinic and was having significant lower back pain and leg pain. She does have history of chronic right lower extremity lymphedema. She presents to clinic with an inability to walk. She states the symptoms have been ongoing for at least 2 months now. The pain extends from her right pelvis down to her right lower extremity. Past medical history Metastatic endometrial cancer currently with no evidence of disease History of right lower extremity DVT on Xarelto Migraines Glaucoma History of subdural hematoma Chronic lymphedema Social history: She lives alone. She does not smoke. Family history: Unremarkable Review of systems: A 12 point review systems was obtained was otherwise negative other than stated in HPI Allergies no known drug allergies Medications: Reviewed in the EMR Physical examination Temp Pulse Resp BP Pulse Ox 36.4 C 100 12 115/66 98 11/30/18 08:00 11/30/18 08:00 11/30/18 08:00 11/30/18 08:00 11/30/18 08:00 O2 (L/minute) 1.5 General: Pleasant appearing female in no acute distress HEENT: Oropharynx is clear extraocular movements are intact pupils equal round reactive to light Cardiovascular: Regular rate and rhythm Pulmonary: Clear to auscultation bilaterally Abdomen: Soft nontender nondistended bowel sounds are present no hepatosplenomegaly Skin: No skin lesions Extremities: 1+ edema in the right lower extremity otherwise no cyanosis clubbing or edema Neuro: Cranial nerves II through XII intact, lower extremity motor is intact 5 out of 5 equal WBC 3.95 10^3/uL (3.80-9.50) 11/29/18 11:53 RBC 4.34 10^6/uL (4.18-5.33) 11/29/18 11:53 Hgb 12.0 g/dL (12.6-16.3) L 11/29/18 11:53 Hct 37.9 % (38.0-47.0) L 11/29/18 11:53 MCV 87.3 fL (81.5-99.8) 11/29/18 11:53 MCH 27.6 pg (27.9-34.1) L 11/29/18 11:53 MCHC 31.7 g/dL (32.4-36.7) L 11/29/18 11:53 RDW 14.7 % (11.5-15.2) 11/29/18 11:53 Plt Count 280 10^3/uL (150-400) 11/29/18 11:53 MPV 9.4 fL (8.7-11.7) 11/29/18 11:53 Neut % (Auto) 55.1 % (39.3-74.2) 11/29/18 11:53 Lymph % (Auto) 33.2 % (15.0-45.0) 11/29/18 11:53 Gage % (Auto) 9.6 % (4.5-13.0) 11/29/18 11:53 Eos % (Auto) 1.0 % (0.6-7.6) 11/29/18 11:53 Baso % (Auto) 0.8 % (0.3-1.7) 11/29/18 11:53 Nucleat RBC Rel Count 0.0 % (0.0-0.2) 11/29/18 11:53 Absolute Neuts (auto) 2.18 10^3/uL (1.70-6.50) 11/29/18 11:53 Absolute Lymphs (auto) 1.31 10^3/uL (1.00-3.00) 11/29/18 11:53 Absolute Monos (auto) 0.38 10^3/uL (0.30-0.80) 11/29/18 11:53 Absolute Eos (auto) 0.04 10^3/uL (0.03-0.40) 11/29/18 11:53 Absolute Basos (auto) 0.03 10^3/uL (0.02-0.10) 11/29/18 11:53 Absolute Nucleated RBC 0.00 10^3/uL (0-0.01) 11/29/18 11:53 Immature Gran % 0.3 % (0.0-1.1) 11/29/18 11:53 Immature Gran # 0.01 10^3/uL (0.00-0.10) 11/29/18 11:53 Sodium 137 mEq/L (135-145) 11/29/18 11:53 Potassium 4.3 mEq/L (3.5-5.2) 11/29/18 11:53 Chloride 100 mEq/L (97-110) 11/29/18 11:53 Carbon Dioxide 29 mEq/l (22-31) 11/29/18 11:53 Anion Gap 8 mEq/L (6-14) 11/29/18 11:53 BUN 22 mg/dL (7-23) 11/29/18 11:53 Creatinine 0.8 mg/dL (0.6-1.0) 11/29/18 11:53 Estimated GFR > 60 11/29/18 11:53 Glucose 102 mg/dL (70-100) H 11/29/18 11:53 Calcium 9.2 mg/dL (8.5-10.4) 11/29/18 11:53 Assessment and plan: Shea is a 68-year-old female with history of metastatic endometrial cancer with no evidence of disease who was admitted for likely L5/S1 facet arthropathy. 1. Lower back pain/right lower extremity pain: She is seen by neurosurgery. They did review MRI dated 11/16/2018 that demonstrated degenerative changes. The recommended epidural steroid injection. We will defer to them with regards to management. 2. Metastatic endometrial cancer 3. History of DVT: Xarelto is currently being held for a spinal procedure. Please feel free to contact us with any questions with regards to her care while she is hospitalized.
[2018-11-30] MEDS: oxyCODONE IR 5 MG TAB PO PRN ×3 (14:06→20:18)
--- NOTE | 2018-11-30 15:34 | HOSPPROG ---
Hospitalist Progress Note Assessment/Plan: S1 Radiculopathy - Presents with RLE weakness, pain - Recent MRI performed, not repeat this admission - Ortho and neurosurgery consulted on admission, plan for SHAWN tomorrow AM, patient willing to undergo surgery if pain/weakness continues despite SHAWN - Holding home Xarelto - Started on Prednisone 40 mg will continue for now - PT/OT - PRN Pain medications Metastatic Endometrial Cancer - S/p Hysterectomy in 2002, refused chemo - Oncology consulted on admission DVT - Currently holding Xarelto in anticipation of SHAWN tomorrow - Resume after procedure FEN: Regular DVT PPx: Holding in setting of procedure tomorrow AM Code: FULL Dispo: Pending clinical course Subjective: Patient reports brief episode of severe pain this AM Objective: Vital Signs Temp Pulse Resp BP Pulse Ox 36.4 C 107 H 16 143/87 H 92 11/30/18 14:02 11/30/18 14:02 11/30/18 14:02 11/30/18 14:02 11/30/18 14:02 Laboratory Results 11/29/18 11:53 11/29/18 11:53 11/29/18 11/30/18 12/01/18 05:59 05:59 05:59 Intake Total 900 Output Total 1100 Balance -200 - Physical Exam Constitutional: no apparent distress Eyes: PERRL Ears, Nose, Mouth, Throat: moist mucous membranes Cardiovascular: regular rate and rhythym Respiratory: no respiratory distress Gastrointestinal: soft, non-tender abdomen Skin: warm Musculoskeletal: no joint effusions, pain with ROM Neurologic: AAOx3 Psychiatric: interacting appropriately ICD10 Worksheet Patient Problems: Problems Problem Status Onset Back pain Acute Acute encephalopathy Acute
--- NOTE | 2018-11-30 16:26 | ASMTCMCOM ---
CM Note CM Note Notes: Patient admitted with RLE weakness and pain. Also has a hx of Endometrial Ca. Met with patient to discuss any anticipated discharge needs, none anticipated at this time. Patient is scheduled for an injection on Tuesday morning, if no improvement with weakness/pain, patient may elect to proceed with surgery. Anticipate patient will be independent at this time but will continue to follow for needs. Therapy has evaluated and cleared. Plan: Anticipate independent. Date Signed: 11/30/2018 04:26 PM Electronically Signed By:Ana Rosa Abdalla RN
[2018-11-30] MEDS: DOXEPIN HCL 50 MG CAP PO SCH (20:17)
[2018-11-30] MEDS: LATANOPROST 0.005% 2.5 ML OPHT DROPS EACHEYE SCH (20:19)
[2018-11-30] MEDS: clonazePAM 1 MG TAB PO PRN (21:35)
[2018-11-30] MEDS ORDERED: HYDROmorphONE/DILAUDID 1 MG/ML INJ IVP ONE (22:27)
[2018-12-01] MEDS ORDERED: TRIAMCINOLONE ACETONIDE 200 MG/5 ML MDV IM ONE (08:01)
[2018-12-01] MEDS ORDERED: IOPAMIDOL (ISOVUE-M 300) 15 ML VIAL ONE (08:01)
[2018-12-01] MEDS ORDERED: FLUMAZENIL 0.5 MG/5 ML MDV IVP PRN (08:07)
[2018-12-01] MEDS ORDERED: fentaNYL 100 MCG/2 ML INJ IVP PRN (08:07)
[2018-12-01] MEDS ORDERED: MIDAZOLAM 2 MG/2 ML VIAL IVP PRN (08:07)
[2018-12-01] MEDS ORDERED: NALOXONE HCL 0.4 MG/ML INJ IVP PRN (08:07)
[2018-12-01] MEDS ORDERED: FLUMAZENIL 0.5 MG/5 ML MDV IVP ONE (08:09)
[2018-12-01] MEDS ORDERED: NALOXONE HCL 0.4 MG/ML INJ ONE (08:09)
[2018-12-01] MEDS ORDERED: fentaNYL 100 MCG/2 ML INJ ONE ×2 (08:10)
[2018-12-01] MEDS ORDERED: MIDAZOLAM 2 MG/2 ML VIAL ONE (08:10)
[2018-12-01] MEDS ORDERED: NS 1,000 ML IV SCH (08:15)
--- NOTE | 2018-12-01 08:39 | SOAPPROG ---
SOAP Progress Note Assessment/Plan: Assessment: 68 yo female with ongoing right leg pain. Not improved on Medrol She is getting SHAWN today No strength or sensory deficits Plan: NPO this AM for right S1 TFESI this AM. PT/OT as tolerated. Assess response to SHAWN and either can DC home with outpatient follow up or if not better could consider Right L5/S1 lateral recess decompression 12/01/18 08:36 Subjective: Out of bed in chair this AM. Moves easily, denies weakness, having only right leg pain. Objective: Vital Signs Temp Pulse Resp BP Pulse Ox 36.4 C 85 16 121/71 H 95 12/01/18 07:14 12/01/18 07:14 12/01/18 07:14 12/01/18 07:14 12/01/18 07:14 Laboratory Results 11/29/18 11:53 11/29/18 11:53 11/30/18 12/01/18 12/02/18 05:59 05:59 05:59 Intake Total 900 0 Output Total 1100 900 Balance -200 -900 Neuro: 5/5 bilateral LE sens +LT able to heel and toe walk moves easily in room ICD10 Worksheet Patient Problems: Problems Problem Status Onset Back pain Acute Acute encephalopathy Acute
--- NOTE | 2018-12-01 09:08 | PDPROPOC ---
Sedation Plan of Care ASA Classification: ASA 2 Mallampati Score: Class 2 Mallampati Reference Image:
--- NOTE | 2018-12-01 09:09 | PDRADPN ---
Radiology Procedure Note Date of Procedure: 12/01/18 Radiologist: Siddhartha Carlos Anesthesia: IV Sedation Pre-op Diagnosis: right leg pain Post-op Diagnosis: same Procedure: caudal SHAWN Inf/Abcess present in the surg proc area at time of surgery?: No
[2018-12-01] MEDS ORDERED: HYDROmorphONE/DILAUDID 2 MG/ML INJ IVP ONE (09:45)
[2018-12-01] MEDS: oxyCODONE IR 5 MG TAB PO PRN (10:42)
[2018-12-01] MEDS: predniSONE 20 MG TAB PO SCH (10:43)
[2018-12-01] MEDS: cycloSPORINE 0.05% 30 DROPERETTE/BOX EACHEYE SCH (10:44)
[2018-12-01] MEDS: TIMOLOL 0.5% 15 ML OPHT.BTL EACHEYE SCH (10:44)
[2018-12-01] MEDS ORDERED: oxyCODONE IR 5 MG TAB PO PRN (11:37)
[2018-12-01] MEDS ORDERED: OXYCODONE/APAP 5/325 TAB PO PRN (13:26)
[2018-12-01] MEDS ORDERED: HYDROmorphONE/DILAUDID 1 MG/ML INJ IVP ONE (13:28)
[2018-12-01 14:42] VITALS: BP 126/85
--- NOTE | 2018-12-01 16:39 | PDDCSUM ---
Discharge Summary Discharge Summary: Date of Admission: 11/29/2018 Date of Discharge: 12/01/2018 Consults: Neurosurgery, Ortho Procedures: SHAWN Followup: Neurosurgery Hospital Course Problem List: S1 Radiculopathy - Presents with RLE weakness, pain - Recent MRI performed, not repeat this admission - Ortho and neurosurgery consulted on admission, s/p SHAWN this AM with significant improvement in symptoms - Holding home Xarelto, restart tomorrow - Started on Prednisone 40 mg, will not continue on discharge - PT/OT - PRN Pain medications, discharged with short supply of Percocet Metastatic Endometrial Cancer - S/p Hysterectomy in 2002, refused chemo - Oncology consulted DVT - Currently holding Xarelto in anticipation of SHAWN, restart tomorrow Time spent on discharge >35 minutes with >50% of time
--- NOTE | 2018-12-01 16:50 | ASMTCMCOM ---
CM Note CM Note Notes: Pr discussed in rounds. Medications changed to PO and Pt's pain is managed. Spine injection was helpful. CM available if needs arise. PLAN: Home Independently. Date Signed: 12/01/2018 04:50 PM Electronically Signed By:Shobha Leon
--- NOTE | 2018-12-01 16:51 | ASMTLACE ---
MARIEE Length of stay for Answers: 2 days current admission Acuity / Level of Answers: Yes Care: Did the patient have an inpatient admission? Comorbidities - select Answers: Any tumor (including all that apply lymphoma or leukemia) # of Emergency department Answers: 3-4 visits in the last 6 months Score: 10 Date Signed: 12/01/2018 04:50 PM Electronically Signed By:Shobha Leon
== END 2018-12-01 17:23 | disposition home or self-care (01) ==
LOC: INTOOBSV 11:13 → F1N 14:31
PROVIDERS: ADMIT Internal Medicine; ATTEND Internal Medicine
PROC: 3E0S33Z Introduction of Anti-inflammatory into Epidural Space, Percutaneous Approach (ICD-10-PCS; principal; 2018-11-29)
PROC: 3E0S3BZ Introduction of Anesthetic Agent into Epidural Space, Percutaneous Approach (ICD-10-PCS; principal; 2018-11-29)
DX: M46.97 Unspecified inflammatory spondylopathy, lumbosacral region (principal); M46.96 Unspecified inflammatory spondylopathy, lumbar region; G89.29 Other chronic pain; G43.909 Migraine, unspecified, not intractable, without status migrainosus; Z85.42 Personal history of malignant neoplasm of other parts of uterus; Z86.718 Personal history of other venous thrombosis and embolism; Z79.01 Long term (current) use of anticoagulants
CPT/HCPCS: 62323; 96374; 96375; 96376; 97161; 97165; 97530; 97535; 99152; 99285; G0378; J1170; J1885; J2250; J2405; J3010; J3301; J7512; Q9967; J2310

== ENCOUNTER 2019-01-08 12:07 | Day surgery (SDC) | payer OTHER ==
[2019-01-08] MEDS ORDERED: LIDOCAINE 1% 2 ML INJ ID PRN (12:50)
[2019-01-08] MEDS ORDERED: LR 1,000 ML IV ONE (12:50)
[2019-01-08] MEDS ORDERED: IOTHALAMATE MEG (CONRAY) 50 ML VIAL IV ONE (14:32)
[2019-01-08] MEDS ORDERED: INDOMETHACIN 50 MG SUPP PR ONE (14:33)
[2019-01-08] MEDS ORDERED: fentaNYL 100 MCG/2 ML INJ ONE (14:45)
--- NOTE | 2019-01-08 14:45 | PDGENHP ---
History & Physical Chief Complaint: abnl imaging History of Present Illness: 68 year old female presents for bilary dilation. Pertinent Past, Social, Family History: pMHx: uterine cancer, DVT Relevant Physical Exam: HEENT: anicteric. CV: RRR +s1s2. Lungs: CTAB. Abd: soft, nt, + bs Cardiorespiratory Assessment: ASA 3
[2019-01-08] MEDS ORDERED: ALBUTEROL 3 ML DEYVIAL IH PRN (14:51)
[2019-01-08] MEDS ORDERED: NALOXONE HCL 0.4 MG/ML INJ IVP PRN (14:51)
[2019-01-08] MEDS ORDERED: ONDANSETRON 4 MG/2 ML VIAL IVP PRN (14:51)
[2019-01-08] MEDS ORDERED: LR 500 ML IV PRN (14:51)
[2019-01-08] MEDS ORDERED: HYDROmorphONE/DILAUDID 1 MG/ML INJ IVP PRN (14:51)
[2019-01-08] MEDS ORDERED: fentaNYL 100 MCG/2 ML INJ IVP PRN (14:51)
[2019-01-08] MEDS ORDERED: DIAZEPAM 10 MG/2 ML SYR IVP PRN (14:51)
[2019-01-08] MEDS ORDERED: PROMETHAZINE HCL 25 MG/ML INJ IVP PRN (14:51)
--- NOTE | 2019-01-08 14:51 | PDANEPAE ---
ANE History of Present Illness EUS EGD ANE Past Medical History - Cardiovascular History Hx Hypertension: No Hx Arrhythmias: No Hx Chest Pain: No Hx Coronary Artery / Peripheral Vascular Disease: No Hx CHF / Valvular Disease: No Hx Palpitations: No Cardiovascular History Comment: RLE DVT 11/2018 - Pulmonary History Hx COPD: No Hx Asthma/Reactive Airway Disease: No Hx Recent Upper Respiratory Infection: No Hx Oxygen in Use at Home: No Hx Sleep Apnea: No Sleep Apnea Screening Result - Last Documented: Negative - Neurologic History Hx Cerebrovascular Accident: No Hx Seizures: No Hx Dementia: No Neurologic History Comment: hx of migraines. SDH s/p fall 2007 - Endocrine History Hx Diabetes: No Hypothyroid: No Hyperthyroid: No Obesity: no - Renal History Hx Renal Disorders: No - Liver History Hx Hepatic Disorders: No - Neurological & Psychiatric Hx Neurological / Psychiatric History Comment: depression - Cancer History Hx Cancer: Yes Cancer History Comment: endometrial CA - Congenital Disorder History Hx Congenital Disorders: No - GI History Hx Gastrointestinal Disorders: No - Other Health History Other Health History: wears glasses - Chronic Pain History Chronic Pain: Yes (right leg/ calf, back) - Surgical History Prior Surgeries: 01/08/19 ERCP/ EUS with Raju. 09/20/2017 colonoscopy with Araceli. hysterectomy. SDH evacuation ANE Review of Systems Review of Systems: - Exercise capacity METS (RN): 4 METS ANE Patient History - Allergies Allergies/Adverse Reactions: No Known Allergies Allergy (Verified 01/08/19 09:27) - Home Medications Home medications: home medication list seen and reviewed Home Medications: Clonazepam 2 mg PO TID PRN 10/13/14 [Last Taken 01/08/19 08:00] Doxepin HCl [Sinequan 50 MG (*)] 300 mg PO HS 10/13/14 [Last Taken 01/07/19] Alendronate Sodium [Fosamax 70 MG (*)] 70 mg PO WE 09/20/17 [Last Taken 01/03/19 ] Herbals/Supplements -Info Only 1 ea PO DAILY 11/29/18 [Last Taken 01/07/19] Latanoprost 0.005% [Xalatan 0.005% (*)] 1 drops EACHEYE HS 11/29/18 [Last Taken 01/07/19] Naratriptan HCl [Amerge] 1 mg PO DAILY PRN 11/29/18 [Last Taken 01/07/19] Rivaroxaban [Xarelto 10mg (*)] 20 mg PO DAILY 11/29/18 [Last Taken 01/06/19] Timolol 0.5% [TIMOPTIC 0.5% (*)] 1 drops EACHEYE DAILY 11/29/18 [Last Taken ] cycloSPORINE 0.05% [Restasis Opht Drops(*)] 1 drop EACHEYE BID 11/29/18 [Last Taken 01/07/19] Cholecalciferol Vit D3 [Vitamin D3 (*)] 1,000 units PO DAILY 01/03/19 [Last Taken 01/07/19] Gabapentin [Neurontin 300 MG (*)] 300 mg PO TID 01/03/19 [Last Taken 01/07/19] oxyCODONE IR [Oxycodone Ir (*)] 10 mg PO Q4-6PRN PRN 01/03/19 [Last Taken ] - NPO status NPO Since - Liquids (Date): 01/08/19 NPO Since - Liquids (Time): 00:00 NPO Since - Solids (Date): 01/08/19 NPO Since - Solids (Time): 00:00 - Smoking Hx Smoking Status: Never smoked - Family Anes Hx Family Hx Anesthesia Complications: none ANE Labs/Vital Signs - Vital Signs Blood Pressure: 130/83 Heart Rate: 82 Respiratory Rate: 10 O2 Sat (%): 96 Height: 154.94 cm Weight: 57.9 kg ANE Physical Exam - Airway Neck exam: FROM Mallampati Score: Class 1 Mouth exam: normal dental/mouth exam - Pulmonary Pulmonary: no respiratory distress - Cardiovascular Cardiovascular: regular rate and rhythym - ASA Status ASA Status: III ANE Anesthesia Plan Anesthesia Plan: GA with mask
--- NOTE | 2019-01-08 14:51 | POSTANESTH ---
Post Anesthetic Evaluation Cardiovascular Status: Normal, Stable Respiratory Status: Normal, Stable Level of Consciousness/Mental Status: Can Participate in Eval, Mildly Sleepy, Arousable Pain Control: Adequate, Prn Tx Ordered Nausea/Vomiting Control: Adequate, Prn Tx Ordered Complications Possibly Related to Anesthesia: None Noted
[2019-01-08] MEDS ORDERED: LIDOCAINE 2% 2 ML INJ ONE (14:52)
[2019-01-08] MEDS ORDERED: NS 500 ML IV SCH (15:00)
[2019-01-08] MEDS ORDERED: SUGAMMADEX SODIUM 200 MG/2 ML VIAL IVP ONE (15:47)
--- NOTE | 2019-01-08 16:39 | GIREPORT ---
Formerly [facility], [facility] Surgical Services - Endoscopy Department Patient Name: Shea Erickson Procedure Date: 01/08/2019 2:51 PM Patient Type: Outpatient Attending MD/ ER Physician: Berny Dejesus MD Procedure: Upper EUS Indications: Common bile duct dilation (etiology unknown) seen on CT scan, Dilated pancreatic duct on CT scan Patient Profile: 68 year old female with a history of uterine cancer presents for evalua tion of abnormal imaging. Shea had a recent CT scan which showed a dila adan CBD of 13mm and PD of 4.5mm (CBDwas 7mm and PD of 2.2mm in Jul 2018) Providers: Berny Dejesus MD Medicines: General Anesthesia Complications: No immediate complications. Estimated blood loss: Minimal. Description of Procedure: After obtaining informed consent, the endoscope was passed under direct vision. Throughout the procedure, the patient's blood pressure, pulse, and oxygen saturations were monitored continuously. The Endosonoscope was introduced through the mouth, and advanced to the second part of duoden um. The Endoscope was introduced through the mouth, and advanced to the sec ond part of duodenum. The esophagus, stomach, and duodenum were visualized endosonographically. The upper EUS was accomplished without difficulty. The patient tolerated the procedure well. Findings: ENDOSCOPIC FINDING: : White nummular lesions were noted in the middle third of the esophagus. Cecilia? Biopsies were taken with a cold forceps for histology. A hiatal hernia was present. Patchy mildly erythematous mucosa was found in the gastric body and in the gastric antrum. Biopsies were taken with a cold forceps for histology. The examined duodenum was normal. ENDOSONOGRAPHIC FINDING: : Pancreatic parenchymal abnormalities were noted in the entire pancreas. These consisted of hyperechoic foci. The pancreatic duct was dilated to 3.5mm. The pancreatic duct and CBD was seen merging together with no ob vious mass lesion. There was no sign of significant endosonographic abnormality in the gallbladder. There was dilation in the common bile duct which measured up to 12 mm. No lymphadenopathy seen. There was no sign of significant endosonographic abnormality in the visualized portion of the liver. No masses were identified. Estimated Blood Loss: Estimated blood loss was minimal. Post Op Diagnosis: - White nummular lesions in esophageal mucosa. Biopsied. - Hiatal hernia. - Erythematous mucosa in the gastric body and antrum. Biopsied. - Normal examined duodenum. - Pancreatic parenchymal abnormalities consisting of hyperechoic foci w ere noted in the entire pancreas. - Pancreatic duct in head dilated to 3.5mm. - There was no sign of significant pathology in the gallbladder. - There was dilation in the common bile duct which measured up to 12 mm . - There was no evidence of significant pathology in the visualized port ion of the liver. - Etiology? No mass lesion seen. However, significant increase if CBD a nd PD dilation on imaging. Recommend to check MRI with MRCP in 6 weeks. Follo w LFTs. Recommendation: - Discharge patient to home (with escort). - Advance diet as tolerated. - Continue present medications. - Perform MRI with MRCP in 6 weeks. - Check liver enzymes (AST, ALT, alkaline phosphatase, bilirubin) in 3 weeks. - Thank you for allowing me to participate in the care of your patient. Attending Participation: I personally performed the entire procedure. Berny Dejesus MD Berny Dejesus MD 01/08/2019 4:38:51 PM This report has been signed electronicallyBerny Dejesus MD Number of Addenda: 0 Note Initiated On: 01/08/2019 2:51 PM [email or web address]
[2019-01-08 17:23] VITALS: BP 140/78
== END 2019-01-08 18:30 | disposition home or self-care (01) ==
LOC: FSGY 12:07
PROVIDERS: ATTEND Internal Medicine Gastroenterology
DX: R93.2 Abnormal findings on diagnostic imaging of liver and biliary tract (principal); K44.9 Diaphragmatic hernia without obstruction or gangrene; Z85.42 Personal history of malignant neoplasm of other parts of uterus; Z86.718 Personal history of other venous thrombosis and embolism
CPT/HCPCS: J3010; Q9961

== ENCOUNTER 2019-01-10 05:27 | Observation (INO) | payer OTHER ==
[2019-01-10] MEDS ORDERED: LR 1,000 ML IV ONE (05:45)
[2019-01-10] MEDS ORDERED: LIDOCAINE 1% 2 ML INJ ID PRN (05:45)
[2019-01-10] MEDS ORDERED: ACETAMINOPHEN 500 MG TAB PO ONE (06:30)
[2019-01-10] MEDS ORDERED: GABAPENTIN 300 MG CAP PO ONE (06:30)
[2019-01-10] MEDS ORDERED: THROMBIN (BOVINE) 5,000 UNIT VIAL TP ONE (06:40)
[2019-01-10] MEDS ORDERED: BUPIVACAINE/EPI 0.25% 30 ML SDV ONE (06:40)
[2019-01-10] MEDS ORDERED: CHLORHEXIDINE GLUC HIBICLENS 118 ML BTL TP ONE (06:40)
[2019-01-10] MEDS ORDERED: BACITRACIN 50,000 UNITS/10 ML SYR IRR ONE (06:41)
[2019-01-10] MEDS ORDERED: DEPO METHYLPREDNISOLONE 40 MG/ML SDV ONE (06:41)
[2019-01-10] MEDS ORDERED: ceFAZolin 2 GM/DEXTROSE 100 ML IV ONE (07:00)
[2019-01-10] MEDS ORDERED: REMIFENTANIL HCL 1 MG VIAL ONE (07:21)
[2019-01-10] MEDS ORDERED: PROPOFOL/EMULSION 500 MG/50 ML BOTTLE IV ONE (07:22)
[2019-01-10] MEDS ORDERED: fentaNYL 100 MCG/2 ML INJ ONE (07:22)
[2019-01-10] MEDS ORDERED: PROPOFOL 200 MG/20 ML VIAL ONE (07:23)
[2019-01-10] MEDS: SURGIFLO MATRIX KIT WITH THROMBIN 8 ML TP ONE ×2 (08:46→08:57)
[2019-01-10] MEDS ORDERED: PROMETHAZINE HCL 25 MG/ML INJ IVP PRN (09:49)
[2019-01-10] MEDS ORDERED: NALOXONE HCL 0.4 MG/ML INJ IVP PRN (09:49)
[2019-01-10] MEDS ORDERED: ONDANSETRON 4 MG/2 ML VIAL IVP PRN ×2 (09:49→10:20)
[2019-01-10] MEDS ORDERED: fentaNYL 100 MCG/2 ML INJ IVP PRN (09:49)
[2019-01-10] MEDS ORDERED: oxyCODONE IR 5 MG TAB PO PRN (10:17)
[2019-01-10] MEDS ORDERED: NARATRIPTAN HCL 1 MG PO PRN (10:17)
[2019-01-10] MEDS ORDERED: MAGNESIUM HYDROXIDE 30 ML UDCUP PO PRN (10:20)
[2019-01-10] MEDS ORDERED: ONDANSETRON DISINTEGRATING 4 MG TAB PO PRN (10:20)
[2019-01-10] MEDS ORDERED: BISACODYL 10 MG SUPP PR PRN (10:20)
[2019-01-10] MEDS ORDERED: POLYETHYLENE GLYCOL 3350 17 GM PKT PO PRN (10:20)
[2019-01-10] MEDS ORDERED: HYDROmorphONE/DILAUDID 1 MG/ML INJ IVP PRN (10:20)
[2019-01-10] MEDS ORDERED: LACTULOSE 20 GM/30 ML UDCUP PO PRN (10:20)
[2019-01-10] MEDS ORDERED: diphenhydrAMINE 25 MG CAP PO PRN (10:20)
[2019-01-10] MEDS ORDERED: METHOCARBAMOL 750 MG TAB PO PRN (10:20)
[2019-01-10] MEDS ORDERED: ALENDRONATE SODIUM 70 MG TAB PO SCH (10:30)
[2019-01-10] MEDS ORDERED: NS 1,000 ML IV SCH (10:30)
[2019-01-10] MEDS ORDERED: clonazePAM 1 MG TAB PO PRN (11:30)
[2019-01-10] MEDS: ACETAMINOPHEN 500 MG TAB PO SCH ×2 (13:48→21:50)
[2019-01-10] MEDS: ceFAZolin 2 GM/DEXTROSE 100 ML IV SCH ×2 (15:36→23:53)
[2019-01-10] MEDS: GABAPENTIN 300 MG CAP PO SCH ×2 (15:36→21:50)
[2019-01-10] MEDS ORDERED: LATANOPROST 0.005% 2.5 ML OPHT DROPS EACHEYE SCH (21:00)
[2019-01-10] MEDS ORDERED: DOXEPIN HCL 50 MG CAP PO SCH (21:00)
[2019-01-10] MEDS: FAMOTIDINE 20 MG TAB PO SCH (21:51)
[2019-01-10] MEDS: SENNOSIDES/DOCUSATE SODIUM TAB PO SCH (21:51)
[2019-01-10] MEDS: cycloSPORINE 0.05% 30 DROPERETTE/BOX EACHEYE SCH (21:52)
[2019-01-11] MEDS: ACETAMINOPHEN 500 MG TAB PO SCH (06:09)
[2019-01-11] MEDS: SENNOSIDES/DOCUSATE SODIUM TAB PO SCH (08:06)
[2019-01-11] MEDS: GABAPENTIN 300 MG CAP PO SCH (08:06)
[2019-01-11] MEDS: FAMOTIDINE 20 MG TAB PO SCH (08:07)
[2019-01-11] MEDS ORDERED: CHOLECALCIFEROL VIT D3 1,000 UNITS TAB PO SCH (09:00)
[2019-01-11] MEDS ORDERED: TIMOLOL 0.5% 15 ML OPHT.BTL EACHEYE SCH (09:00)
[2019-01-11] MEDS: cycloSPORINE 0.05% 30 DROPERETTE/BOX EACHEYE SCH (10:20)
== END 2019-01-11 10:50 | disposition home health service (06) ==
DX: M67.48 Ganglion, other site (principal); M25.78 Osteophyte, vertebrae; M54.18 Radiculopathy, sacral and sacrococcygeal region; Z86.718 Personal history of other venous thrombosis and embolism
CPT/HCPCS: 63047; 76000; 97161; 97166; 97535; G0378; J0690; J2704; J3010